=== PATIENT | male | born 1960 | race Caucasian/White ===

== ENCOUNTER 2021-01-06 14:39 | Outpatient (CLI) | payer OTHER ==
[2021-01-06 15:50] LABS: BASOPHILS % (AUTO) 1 % (0-1); EOSINOPHILS % (AUTO) 3 % (1-7); LYMPHOCYTES % (AUTO) 27 % (22-44); MEAN CORPUSCULAR HEMOGLOBIN 28.7 pg (27.5-34.5); MEAN CORPUSCULAR HGB CONC 34.7 g/dL (33.2-36.2); MEAN PLATELET VOLUME 7.6 fL (7.4-10.4); MONOCYTES % (AUTO) 9 % (2-9); NEUTROPHILS % (AUTO) 61 % (42-75); PLATELET COUNT 269 x10^3/uL (130-400); RED BLOOD COUNT 5.88 x10^6/uL (4.38-5.82); RED CELL DISTRIBUTION WIDTH 13.2 % (9.4-14.8)
[2021-01-06 15:54] LABS: MD NO
[2021-01-06 15:58] LABS: INTERNATIONAL NORMALIZED RATIO 1.02 (0.93-1.1); PROTHROMBIN TIME 10.9 Seconds (9.6-11.5)
[2021-01-06 15:59] LABS: ALANINE AMINOTRANSFERASE 40 U/L (12-78); ANION GAP 3 mmol/L (5-15); CALCIUM 8.7 mg/dL (8.5-10.1); CHLORIDE 109 mmol/L (98-107); CREATININE 0.91 mg/dL (0.7-1.3)
[2021-01-06 16:01] LABS: ALKALINE PHOSPHATASE 61 U/L (45-117); BILIRUBIN,TOTAL 0.4 mg/dL (0.2-1.0); TOTAL PROTEIN 7.6 g/dL (6.4-8.2)
== END 2021-01-06 23:59 | disposition home or self-care (01) ==
LOC: STAR 14:39
PROVIDERS: ATTEND Surgery
DX: Z01.812 Encounter for preprocedural laboratory examination (principal); Z20.822 Contact with and (suspected) exposure to COVID-19
CPT/HCPCS: 36415; 80053; 85025; 85610; 93005; U0003

== ENCOUNTER 2021-01-10 07:54 | Day surgery (SDC) | payer OTHER ==
[~2021-01-10] VITALS: Ht 177.8 cm; Wt 116.9 kg
[2021-01-10 08:37] VITALS: BP 151/89
[2021-01-10] MEDS: LACTATED RINGERS 1,000 ML IV SCH ×2 (08:49→08:58)
[2021-01-10] MEDS ORDERED: CHLORHEXIDINE 15 ML UDC ONE (08:51)
[2021-01-10] MEDS ORDERED: CHLORHEXIDINE 15 ML UDC PO ONE (09:00)
[2021-01-10] MEDS ORDERED: ROCURONIUM 10MG/ML,5ML ONE (12:49)
[2021-01-10] MEDS ORDERED: FENTANYL PF 100 MCG/2ML ONE ×3 (12:49→13:42)
[2021-01-10] MEDS ORDERED: PROPOFOL 10 MG/ML, 20ML ONE (12:49)
[2021-01-10] MEDS ORDERED: SUCCINYLCHOLINE 20 MG/ML, 10ML ONE (12:49)
[2021-01-10] MEDS ORDERED: MIDAZOLAM 1 MG/ML, 2ML ONE (12:49)
[2021-01-10] MEDS ORDERED: BUPIVACAINE/PF 0.5% ONE (12:50)
[2021-01-10] MEDS ORDERED: ISOSULFAN BLUE 10 MG/ML, 5ML IV ONE (12:50)
[2021-01-10] MEDS ORDERED: EPINEPHRINE 1 MG/ML, 1ML ONE (12:50)
[2021-01-10] MEDS ORDERED: CEFAZOLIN 1,000 MG ONE (13:06)
[2021-01-10] MEDS ORDERED: DEXAMETHASONE 4 MG/ML, 1ML ONE ×2 (13:16→14:18)
[2021-01-10] MEDS ORDERED: ACETAMINOPHEN 325 MG TABLET PO PRN (14:00)
[2021-01-10] MEDS ORDERED: DIPHENHYDRAMINE 50 MG/ML, 1ML IVPush PRN ×2 (14:00)
[2021-01-10] MEDS ORDERED: hydrALAzine 20 MG/ML, 1ML IV PRN (14:00)
[2021-01-10] MEDS ORDERED: ONDANSETRON 2MG/ML, 2ML IVPush PRN (14:00)
[2021-01-10] MEDS ORDERED: ALBUTEROL SULFATE 2.5 MG/3 ML NPPB PRN (14:00)
[2021-01-10] MEDS ORDERED: MEPERIDINE/PF 25MG/0.5ML IVPush PRN (14:00)
[2021-01-10] MEDS ORDERED: HYDROmorphone 1 MG/ML, 1ML INJ IVPush PRN (14:00)
[2021-01-10] MEDS ORDERED: LABETALOL 5MG/ML, 20ML IV PRN (14:00)
[2021-01-10] MEDS ORDERED: OXYcodone 5 MG/5 ML ORAL.SOL UDC PO PRN (14:00)
[2021-01-10] MEDS ORDERED: PROMETHAZINE 25 MG/ML, 1ML IVPush PRN (14:00)
[2021-01-10] MEDS ORDERED: EPHEDRINE 50 MG/ML, 1ML IVPush PRN (14:00)
[2021-01-10] MEDS ORDERED: PROMETHAZINE 12.5 MG SUPP PR PRN (14:00)
[2021-01-10] MEDS ORDERED: FENTANYL PF 100 MCG/2ML IV PRN (14:00)
[2021-01-10] MEDS ORDERED: ONDANSETRON 2MG/ML, 2ML ONE ×2 (14:18)
[2021-01-10] MEDS ORDERED: HYDR-2214 PO (14:52)
[2021-01-10] MEDS ORDERED: KETOROLAC 30 MG/1 ML IVPush ONE (16:30)
== END 2021-01-10 16:36 | disposition home or self-care (01) ==
LOC: OUT 07:54 → EDSTATUS 13:00 → OUT 16:36
PROVIDERS: ATTEND Surgery
DX: C43.61 Malignant melanoma of right upper limb, including shoulder (principal); C77.3 Secondary and unspecified malignant neoplasm of axilla and upper limb lymph nodes; J44.9 Chronic obstructive pulmonary disease, unspecified; E66.9 Obesity, unspecified; Z68.37 Body mass index [BMI] 37.0-37.9, adult; Z79.899 Other long term (current) drug therapy; Z87.891 Personal history of nicotine dependence; Z98.890 Other specified postprocedural states
CPT/HCPCS: 14000; 38525; 38792; 88307; 93017; J0171; J0330; J0690; J1100; J1885; J2250; J2405; J2704; J3010; J7120

== ENCOUNTER 2021-02-01 08:19 | Outpatient (CLI) | payer OTHER ==
[~2021-02-01 08:19] MED LIST: HYDR-2214 PO
== END 2021-02-01 23:59 | disposition home or self-care (01) ==
LOC: PETCFH 08:19
PROVIDERS: ATTEND Surgery
DX: C43.61 Malignant melanoma of right upper limb, including shoulder (principal); D35.01 Benign neoplasm of right adrenal gland; K80.20 Calculus of gallbladder without cholecystitis without obstruction; K57.30 Diverticulosis of large intestine without perforation or abscess without bleeding; J34.89 Other specified disorders of nose and nasal sinuses
CPT/HCPCS: 78816; A9552